=== PATIENT | male | born 1965 | race Caucasian/White ===

== ENCOUNTER 2019-02-13 14:02 | Emergency (ER) | payer OTHER ==
[2019-02-13] MEDS: HYDROCODONE/APAP (5/325) TAB PO (15:23)
[2019-02-13] MEDS: KETOROLAC 30 MG INJ IM (15:23)
== END 2019-02-13 17:30 | disposition home or self-care (01) ==
LOC: FTE 14:02
DX: M48.061 Spinal stenosis, lumbar region without neurogenic claudication (principal); M54.41 Lumbago with sciatica, right side; E11.9 Type 2 diabetes mellitus without complications; I10 Essential (primary) hypertension; Z79.82 Long term (current) use of aspirin; Z79.84 Long term (current) use of oral hypoglycemic drugs
CPT/HCPCS: 72131; 96372; 99285-25